=== PATIENT | female | born 1945 | race Caucasian/White ===

== ENCOUNTER 2019-05-10 19:09 | Emergency (ER) | payer MEDICARE, MEDICAID ==
[~2019-05-10] VITALS: Ht 160 cm; Wt 54.4 kg
[2019-05-10 19:34] VITALS: BP_SYST 158
--- NOTE | 2019-05-10 19:37 | NUR ---
Patient triaged and placed in waiting room. VS checked and patient appears in no acute distress at this time. Accompanied by family , awaiting available bed, and MD notified of need for MSE.
[2019-05-10] MEDS ORDERED: LEVO75TA7 PO (20:38)
[2019-05-10] MEDS ORDERED: ASPI-1153 PO (20:39)
[2019-05-10] MEDS ORDERED: GLIP5TAB13 PO (20:39)
[2019-05-10] MEDS ORDERED: CLOP75TA32 PO (20:40)
[2019-05-10] MEDS ORDERED: CARV12.548 PO (20:40)
[2019-05-10] MEDS ORDERED: ISOS20TA8 PO (20:41)
[2019-05-10] MEDS ORDERED: SODI650T PO (20:42)
[2019-05-10] MEDS ORDERED: NOR10 PO (20:43)
[2019-05-10] MEDS ORDERED: FENO48TA4 PO (20:43)
[2019-05-10] MEDS ORDERED: CHOL500037 PO (20:44)
[2019-05-10] MEDS ORDERED: FERR-69 PO (20:45)
--- NOTE | 2019-05-10 20:46 | NUR ---
Medication reconciliation completed with information provided by patient. Any prior medication reconciliation on file was reviewed and corrected.
--- NOTE | 2019-05-10 21:45 | NUR ---
Patient to ER bed 8 to gown for evaluation. Side rails up.
--- NOTE | 2019-05-10 22:00 | NUR ---
Pt came to the ED for 3 day HX of 10/10 bilateral leg pain and bilateral leg swelling. Reports that swelling started 3 days ago, in the R leg. Denies n/v/d or fever. Denies chest pain or SOB. Will cont. to monitor.
--- NOTE | 2019-05-11 01:50 | NUR ---
ER at bedside examining patient.
[2019-05-11] MEDS ORDERED: ACETAMINOPHEN 500 MG TABLET PO ONE (02:00)
[2019-05-11] MEDS ORDERED: ACETAMINOPHEN 325 MG TABLET PO ONE (02:15)
[2019-05-11 02:25] LABS: BASOPHILS % (AUTO) 0.5 % (0.0-2.0); EOSINOPHILS # (AUTO) 0.1 K/uL (0.0-0.4); EOSINOPHILS % (AUTO) 2.7 % (0.0-4.0); HEMATOCRIT 31.7 % (36-48); HEMOGLOBIN 10.3 g/dL (12.0-16.0); LYMPHOCYTES # (AUTO) 1.3 K/uL (1.0-5.5); LYMPHOCYTES % (AUTO) 23.5 % (20.5-51.5); MEAN CORPUSCULAR HEMOGLOBIN 30 pg (27-31); MEAN CORPUSCULAR HGB CONC 33 % (32-36); MEAN CORPUSCULAR VOLUME 91 fL (79.0-98.0); MONOCYTES # (AUTO) 0.5 K/uL (0.0-1.0); MONOCYTES % (AUTO) 9.3 % (1.7-9.3); NEUTROPHILS # (AUTO) 3.4 K/uL (1.8-7.7); PLATELET COUNT (AUTO) 195 K/uL (130-430); RED BLOOD CELL COUNT(AUTO) 3.47 MIL/uL (4.2-6.2); RED CELL DISTRIBUTION WIDTH 14.9 % (9.0-15.0); WHITE BLOOD COUNT (AUTO) 5.3 K/uL (4.8-10.8)
--- NOTE | 2019-05-11 02:27 | NUR ---
Pt asked for food, asked Dr. Moncada if its ok for pt to eat. Dr. moncada states its ok. Patterson and apple juice provided to pt.
[2019-05-11 02:28] LABS: PROTHROMBIN TIME 10.4 SECS (9.5-12.5)
[2019-05-11 02:35] LABS: ANION GAP 9 (5-15); CALCIUM 8.4 mg/dL (8.4-11.0); CHLORIDE 110 mmol/L (98-107); CREATININE 2.48 mg/dL (0.55-1.30); GLUCOSE 102 mg/dL (70-99); POTASSIUM 4.8 mmol/L (3.5-5.1); SODIUM SERUM 140 mmol/L (136-145); UREA NITROGEN, BLOOD 58 mg/dL (8-21)
[2019-05-11 02:40] LABS: ALANINE AMINOTRANSFERASE 18 U/L (12-78); ASPARTATE AMINOTRANSFERASE 13 U/L (10-37); TOTAL BILIRUBIN 0.2 mg/dL (0.0-1.0)
--- NOTE | 2019-05-11 02:50 | NUR ---
Ultrasound at bedside.
[2019-05-11 05:09] VITALS: BP_SYST 158
--- NOTE | 2019-05-11 05:09 | NUR ---
Patient given written and verbal discharge instructions and verbalizes understanding. ER MD Dr. Moncada discussed with patient the results and treatment provided. Patient in stable condition. ID arm band removed. Patient educated on pain management and to follow up with PMD. Pain Scale 0/10. Opportunity for questions provided and answered. Medication side effect fact sheet provided.
== END 2019-05-11 05:09 | disposition home or self-care (01) ==
LOC: SED 19:09
DX: I13.0 Hypertensive heart and chronic kidney disease with heart failure and stage 1 through stage 4 chronic kidney disease, or unspecified chronic kidney disease (principal); E11.22 Type 2 diabetes mellitus with diabetic chronic kidney disease; N18.9 Chronic kidney disease, unspecified; I50.9 Heart failure, unspecified; M79.89 Other specified soft tissue disorders; Z88.5 Allergy status to narcotic agent; Z79.899 Other long term (current) drug therapy; Z79.82 Long term (current) use of aspirin
CPT/HCPCS: 36415; 80053; 83880; 84484; 85025; 85379; 85610-TC; 85730-TC; 93970; 99284